=== PATIENT | male | born 1965 | race Caucasian/White ===

== ENCOUNTER 2019-06-06 02:28 | Emergency (ER) | payer SELFPAY ==
[2019-06-06] MEDS ORDERED: Albuterol/Ipratropium 3.0-0.5 MG/3 ML Neb Soln NEB ONE (02:51)
--- NOTE | 2019-06-06 02:53 | EDM.PDOC ---
<OfficerHamzah - Last Filed: 06/06/19 02:52> ED HPI GENERAL MEDICAL PROBLEM - General Chief Complaint: Respiratory Problem Stated Complaint: TROUBLE BREATHING Time Seen by Provider: 06/06/19 02:46 Source of Information: Reports: Patient, Family, RN Notes Reviewed History Limitations: Reports: No Limitations - History of Present Illness INITIAL COMMENTS - FREE TEXT/NARRATIVE: 54-year-old gentleman presents emergency department today with a point of cough and shortness of breath, he does have a known history of COPD states over the last couple of days he's been more and more short of breath he has a dry cough with no sputum production denies pain Pain Score (Numeric/FACES): 0 - Related Data Allergies Allergy/AdvReac Type Severity Reaction Status Date / Time No Known Allergies Allergy Verified 06/06/19 02:29 Home Meds: Home Meds Albuterol [Ventolin HFA] 2 puff INH Q4H PRN #1 inhaler 06/06/19 [Rx] Valsartan/Hydrochlorothiazide [Valsartan-Hctz 160-25 mg Tab] 1 each PO DAILY # 30 tablet 06/06/19 [Rx] metFORMIN HCl [Metformin HCl ER] 1,000 mg PO BID #120 tab.er.24h 06/06/19 [Rx] Past Medical History Respiratory History: Reports: COPD, Other (See Below) Other Respiratory History: emphzema Genitourinary History: Reports: BPH Musculoskeletal History: Reports: Arthritis Psychiatric History: Reports: Anxiety, Depression Dermatologic History: Reports: Eczema - Infectious Disease History Infectious Disease History: Reports: Chicken Pox, Measles Social & Family History - Tobacco Use Smoking Status *Q: Current Every Day Smoker Years of Tobacco use: 30 Packs/Tins Daily: 1.5 - Caffeine Use Caffeine Use: Reports: Coffee - Recreational Drug Use Recreational Drug Use: Yes Drug Use in Last 12 Months: Yes Recreational Drug Type: Reports: Marijuana/Hashish Recreational Drug Use Frequency: Daily ED ROS GENERAL - Review of Systems Review Of Systems: See Below Constitutional: Reports: No Symptoms Respiratory: Reports: Shortness of Breath, Wheezing, Cough. Denies: Sputum Cardiovascular: Reports: No Symptoms GI/Abdominal: Reports: No Symptoms ED EXAM, GENERAL - Physical Exam Exam: See Below Exam Limited By: No Limitations General Appearance: Alert, WD/WN, No Apparent Distress Respiratory/Chest: No Respiratory Distress, Chest Non-Tender, Decreased Breath Sounds, Rhonchi Cardiovascular: Regular Rate, Rhythm, No Murmur Course - Vital Signs Last Recorded V/S: Last Vital Signs Temp 36.6 C 06/06/19 03:05 Pulse 91 06/06/19 03:05 Resp 15 06/06/19 03:05 BP 187/91 H 06/06/19 03:05 Pulse Ox 94 L 06/06/19 03:05 - Orders/Labs/Meds Orders: Active Orders 24 hr Category Date Time Status Cardiac Monitoring [RC] .As Directed Care 06/06/19 02:51 Active EKG Documentation Completion [RC] ASDIRECTED Care 06/06/19 04:33 Active Peripheral IV Care [RC] . DIRECTED Care 06/06/19 04:33 Active RT Aerosol Therapy [RC] ASDIRECTED Care 06/06/19 02:51 Active Sodium Chloride 0.9% [Saline Flush] Med 06/06/19 04:33 Active 10 ml FLUSH ASDIRECTED PRN Peripheral IV Insertion Adult [OM.PC] Urgent Oth 06/06/19 04:33 Ordered EKG 12 Lead [EK] Stat Ther 06/06/19 04:33 Ordered Medication Orders Sodium Chloride (Saline Flush) 10 ml FLUSH ASDIRECTED PRN PRN Reason: Keep Vein Open Last Admin: 06/06/19 05:15 Dose: 10 ml Labs: Laboratory Tests 06/06/19 06/06/19 06/06/19 Range/Units 03:02 03:02 04:03 WBC 11.7 H (4.5-11.0) K/uL RBC 5.16 (4.30-5.90) M/uL Hgb 14.1 (12.0-15.0) g/dL Hct 45.6 (40.0-54.0) % MCV 88 (80-98) fL MCH 27 (27-31) pg MCHC 31 L (32-36) % Plt Count 185 (150-400) K/uL Neut % (Auto) 76 H (36-66) % Lymph % (Auto) 15 L (24-44) % [place] % (Auto) 7 H (2-6) % Eos % (Auto) 2 (2-4) % Baso % (Auto) 0 (0-1) % Sodium 139 L (140-148) mmol/L Potassium 4.3 (3.6-5.2) mmol/L Chloride 103 (100-108) mmol/L Carbon Dioxide 27 (21-32) mmol/L Anion Gap 13.3 (5.0-14.0) mmol/L BUN 19 H (7-18) mg/dL Creatinine 0.9 (0.8-1.3) mg/dL Est Cr Clr Drug Dosing 79.72 mL/min Estimated GFR (MDRD) > 60 (>60) Glucose 174 H (74-106) mg/dL Hemoglobin A1c (4.5-6.2) % Calcium 9.0 (8.5-10.1) mg/dL Total Bilirubin 0.3 (0.2-1.0) mg/dL AST 14 L (15-37) U/L ALT 37 (12-78) U/L Alkaline Phosphatase 144 H (46-116) U/L Troponin I 0.038 (0.000-0.056) ng/mL NT-Pro-B Natriuret Pep 791 H (5-125) pg/mL Total Protein 7.1 (6.4-8.2) g/dL Albumin 3.7 (3.4-5.0) g/dL Globulin 3.4 (2.3-3.5) g/dL Albumin/Globulin Ratio 1.1 L (1.2-2.2) 06/06/19 06/06/19 06/06/19 Range/Units 05:04 07:00 07:21 WBC (4.5-11.0) K/uL RBC (4.30-5.90) M/uL Hgb (12.0-15.0) g/dL Hct (40.0-54.0) % MCV (80-98) fL MCH (27-31) pg MCHC (32-36) % Plt Count (150-400) K/uL Neut % (Auto) (36-66) % Lymph % (Auto) (24-44) % [place] % (Auto) (2-6) % Eos % (Auto) (2-4) % Baso % (Auto) (0-1) % Sodium (140-148) mmol/L Potassium (3.6-5.2) mmol/L Chloride (100-108) mmol/L Carbon Dioxide (21-32) mmol/L Anion Gap (5.0-14.0) mmol/L BUN (7-18) mg/dL Creatinine (0.8-1.3) mg/dL Est Cr Clr Drug Dosing mL/min Estimated GFR (MDRD) (>60) Glucose (74-106) mg/dL Hemoglobin A1c 6.8 H (4.5-6.2) % Calcium (8.5-10.1) mg/dL Total Bilirubin (0.2-1.0) mg/dL AST (15-37) U/L ALT (12-78) U/L Alkaline Phosphatase (46-116) U/L Troponin I 0.045 0.036 (0.000-0.056) ng/mL NT-Pro-B Natriuret Pep (5-125) pg/mL Total Protein (6.4-8.2) g/dL Albumin (3.4-5.0) g/dL Globulin (2.3-3.5) g/dL Albumin/Globulin Ratio (1.2-2.2) Meds: Medications Generic Name Dose Route Start Last Admin Trade Name Freq PRN Reason Stop Dose Admin Sodium Chloride 10 ml 06/06/19 04:33 06/06/19 05:15 Saline Flush FLUSH 10 ml ASDIRECTED PRN Administration Keep Vein Open Discontinued Medications Generic Name Dose Route Start Last Admin Trade Name Freq PRN Reason Stop Dose Admin Albuterol/Ipratropium 3 ml 06/06/19 02:51 06/06/19 03:04 Duoneb 3.0-0.5 Mg/3 Ml NEB 06/06/19 02:52 3 ml ONETIME ONE Administration Aspirin 324 mg 06/06/19 05:37 06/06/19 05:53 Aspirin PO 06/06/19 05:38 324 mg ONETIME ONE Administration Furosemide 40 mg 06/06/19 04:33 06/06/19 05:07 Lasix IVPUSH 06/06/19 04:34 40 mg ONETIME ONE Administration Departure - Departure Disposition: Home, Self-Care 01 Clinical Impression: Mild congestive heart failure, Tobacco abuse HTN (hypertension) Qualifiers: Hypertension type: essential hypertension Qualified Code(s): I10 - Essential ( primary) hypertension Type 2 diabetes mellitus Qualifiers: Diabetes mellitus fdc insulin use: without termite exterminator use Diabetes mellitus complication status: with hyperglycemia Qualified Code(s): E11.65 - Type 2 diabetes mellitus with hyperglycemia COPD (chronic obstructive pulmonary disease) Qualifiers: COPD type: COPD with acute exacerbation Qualified Code(s): J44.1 - Chronic obstructive pulmonary disease with (acute) exacerbation Obesity Qualifiers: Obesity type: due to excess calories Obesity classification: unspecified obesity classification Serious obesity comorbidity presence: with serious comorbidity Qualified Code(s): E66.09 - Other obesity due to excess calories - Discharge Information Prescriptions: Albuterol [Ventolin HFA] 2 puff INH Q4H PRN #1 inhaler PRN Reason: Wheezing metFORMIN HCl [Metformin HCl ER] 1,000 mg PO BID #120 tab.er.24h Valsartan/Hydrochlorothiazide [Valsartan-Hctz 160-25 mg Tab] 1 each PO DAILY # 30 tablet Instructions: Hypertension, Type 2 Diabetes Mellitus, Diagnosis, Adult Referrals: PCP,None [Primary Care Provider] - Forms: ED Department Discharge Additional Instructions: Avoid salt or salty foods. Avoid concentrated sugars. Take an aspirin daily with food. Take your losartan/HCT every day starting this morning. Take your metformin 1000 mg twice daily starting this morning. Get established with a provider of your choice, you will need to be seen within a month, sooner if worse. Use your inhaler 2 puffs as directed, ask the pharmacist for tips on correct use. You can take these meds to any pharmacy. The the non-inhaler meds are $4 for a month's supply at [facility] and $10 for 3 mos if you get stablilized on these meds you doctor can write for a 3 mos supply. Work on quitting smoking. It would be a good idea to discuss a cardiac stress test with your doctor, he can schedule this. Colonoscopy is recommended for everyone at age 50 if you have not had one. <Rubén Musa - Last Filed: 06/06/19 08:09> Course - Vital Signs Text/Narrative:: Feeling better after treatment in the ER. Departure - Departure Time of Disposition: 08:05 Condition: Fair - Discharge Information *PRESCRIPTION DRUG MONITORING PROGRAM REVIEWED*: No *COPY OF PRESCRIPTION DRUG MONITORING REPORT IN PATIENT VLAD: No
--- NOTE | 2019-06-06 03:44 | CRLCR ---
INDICATION: Chest pain, shortness of breath TECHNIQUE: Chest radiograph 2 views COMPARISON: None FINDINGS: Moderate degradation of image quality noted due to body habitus. Mediastinum: The mediastinum is normal in appearance. The heart silhouette is normal in size and morphology. Lung: Mild pulmonary vascular congestion and Evi B lines are present in the right lung base. No sign of pleural effusion seen. No pneumothorax is identified. Bone and Soft tissue: Unremarkable for age. IMPRESSION: 1. Mild pulmonary vascular congestion and Evi B lines are present in the right lung base. Findings are suggestive of mild interstitial edema. Dictated by Cristofer Polo MD @ 06/06/2019 3:44:03 AM Dictated by: Cristofer Polo MD @ 06/06/2019 03:44:06 (Electronically Signed)
[2019-06-06] MEDS ORDERED: Furosemide 40 MG/4 ML VIAL IVPUSH ONE (04:33)
[2019-06-06] MEDS ORDERED: Sodium Chloride 0.9% 10 ML Syringe FLUSH PRN (04:33)
[2019-06-06] MEDS ORDERED: Aspirin 81 MG Tab.Chew PO ONE (05:37)
[2019-06-06 07:46] LABS: HEMOGLOBIN A1C 6.8 % (4.5-6.2)
== END 2019-06-06 08:15 | disposition home or self-care (01) ==
LOC: JP.ED 02:28
DX: I11.0 Hypertensive heart disease with heart failure (principal); I50.9 Heart failure, unspecified; E11.65 Type 2 diabetes mellitus with hyperglycemia; J44.1 Chronic obstructive pulmonary disease with (acute) exacerbation; E66.09 Other obesity due to excess calories; F17.210 Nicotine dependence, cigarettes, uncomplicated; Z79.84 Long term (current) use of oral hypoglycemic drugs; Z79.899 Other long term (current) drug therapy
CPT/HCPCS: 36415; 71046; 80053; 83036; 83880; 84484; 85025; 93005; 93010; 94640; 96374; 99284; 99285; A9270; J1940; J7620-GY

== ENCOUNTER 2023-02-15 08:53 | Emergency (ER) | payer MEDICAID ==
[2023-02-15 09:20] LABS: BASOPHILS ABSOLUTE AUTO 0.07 K/uL (0.00-0.10); BASOPHILS PERCENT AUTO 0.6 % (0.1-1.3); EOSINOPHILS ABSOLUTE AUTO 0.19 K/uL (0.00-0.40); EOSINOPHILS PERCENT AUTO 1.7 % (0.0-5.4); HEMATOCRIT 40.7 % (38.4-49.7); HEMOGLOBIN 13.1 g/dL (12.9-16.9); IMMATURE GRAN PERCENT AUTO 0.9 % (0.0-0.7); LYMPHOCYTES ABSOLUTE AUTO 1.34 K/uL (0.8-3.3); LYMPHOCYTES PERCENT AUTO 11.8 % (11.4-47.7); MEAN CORPUSCULAR HEMOGLOBIN 27.3 pg (31.6-35.5); MEAN CORPUSCULAR HGB CONC 32.2 g/dL (31.6-35.5); MONOCYTES ABSOLUTE AUTO 0.64 K/uL (0.20-0.90); MONOCYTES PERCENT AUTO 5.6 % (3.3-12.6); NEUTROPHILS ABSOLUTE AUTO 9.03 K/uL (1.0-7.6); NEUTROPHILS PERCENT AUTO 79.4 % (40.0-78.1); PLATELET COUNT,PLT 208 K/uL (130-375); RED BLOOD CELL COUNT 4.79 M/uL (4.14-5.76); WHITE BLOOD CELL COUNT,WBC 11.4 K/uL (3.2-11.0)
[2023-02-15 09:23] LABS: BASE EXCESS ARTERIAL 1.7 mm/L; BICARBONATE,ARTERIAL 26.6 mmol/L (22.0-26.0); CARBOXYHEMOGLOBIN 2.1 % (0.0-1.6); METHEMOGLOBIN 0.6 %; O2 SATURATION ARTERIAL 90.6 % (95.0-98.0); OXYHEMOGLOBIN 88.2 %; PCO2 ARTERIAL 45.4 mmHg (35.0-42.0); TOTAL HEMOGLOBIN 13.1 g/dL (13.5-18.0)
[2023-02-15 09:43] LABS: A/G RATIO 1.1 (1.2-2.2); ALANINE AMINOTRANSFERASE,ALT 69 U/L (12-78); ALBUMIN 3.6 g/dL (3.4-5.0); ALKALINE PHOSPHATASE 130 U/L (46-116); ANION GAP 11.1 mmol/L (5.0-14.0); ASPARTATE AMNIOTRANSFERASE,AST 23 U/L (15-37); BILIRUBIN TOTAL 0.5 mg/dL (0.2-1.0); BLOOD UREA NITROGEN,BUN 11 mg/dL (7-18); CALCIUM 9.1 mg/dL (8.5-10.1); CARBON DIOXIDE,CO2 27 mmol/L (21-32); CHLORIDE,CL 98 mmol/L (100-108); EST CRCL DRUG DOSING (CG) 56.25 mL/min; ESTIMATED GFR 87 mL/min (>60); GLUCOSE RANDOM 246 mg/dL (74-106); POTASSIUM,K 4.1 mmol/L (3.6-5.2); PROTEIN TOTAL,TP 6.9 g/dL (6.4-8.2); SODIUM,NA 132 mmol/L (140-148); TROPONIN I HIGH SENSITIVITY 27.3 pg/mL (<=60.3)
[2023-02-15] MEDS ORDERED: Iopamidol 755 Mg/ML 100 ML Bottle IV STA (10:25)
[2023-02-15] MEDS ORDERED: Sodium Chloride 0.9% 100 ML IV STA (10:25)
[2023-02-15] MEDS ORDERED: Sodium Chloride 0.9% 10 ML Syringe FLUSH STA (10:26)
[2023-02-15] MEDS ORDERED: Furosemide 40 MG/4 ML VIAL IVPUSH ONE (11:00)
[2023-02-15] MEDS ORDERED: methylPREDNISolone Sodium Succinate 125 MG/2 ML SDV IVPUSH ONE (12:04)
== END 2023-02-15 12:17 | disposition home or self-care (01) ==
LOC: JP.ED 08:53
DX: J81.1 Chronic pulmonary edema (principal); J44.9 Chronic obstructive pulmonary disease, unspecified; E66.01 Morbid (severe) obesity due to excess calories; Z91.010 Allergy to peanuts; Z79.51 Long term (current) use of inhaled steroids
CPT/HCPCS: 36415; 36600; 71046; 71275; 80053; 82803; 84484; 85025; 85379; 93005; 96374; 99284; J1940; J2930; J3490; Q9967